=== PATIENT | female | born 1975 | race African-American/Black ===

== ENCOUNTER 2016-07-14 23:59 | Emergency (ER) | payer SELFPAY ==
[2016-07-15 01:44] LABS: URINE SOURCE CLEAN CATCH
[2016-07-15 01:48] LABS: URINE APPEARANCE CLOUDY; URINE BILIRUBIN NEG (NEG); URINE BLOOD NEG (NEG); URINE COLOR YELLOW; URINE GLUCOSE NEG (NEG); URINE KETONE NEG (NEG); URINE LEUKOCYTE ESTERASE 2+ (NEG); URINE NITRATE NEG (NEG); URINE PROTEIN NEG (NEG); URINE SPECIFIC GRAVITY 1.021 (1.003-1.035)
[2016-07-15 01:50] LABS: CULTURE INDICATED? YES; URINE BACTERIA AUWI 3+ (NEGATIVE); URINE SQUAMOUS EPITHELIAL CELL MOD /[HPF]; UWBCS1 AUWI 25-50 (0-5)
== END 2016-07-15 02:38 | disposition home or self-care (01) ==
LOC: CED 23:59
PROVIDERS: Nurse Practitioner
DX: L02.416 Cutaneous abscess of left lower limb (principal); N39.0 Urinary tract infection, site not specified; Z23 Encounter for immunization
CPT/HCPCS: 10060; 81003; 87086; 90471; 90715; 99283

== ENCOUNTER 2016-08-06 08:49 | Emergency (ER) | payer SELFPAY ==
[2016-08-06 09:22] LABS: URINE SOURCE CLEAN CATCH
[2016-08-06 09:30] LABS: URINE APPEARANCE CLOUDY; URINE BILIRUBIN NEG (NEG); URINE BLOOD NEG (NEG); URINE COLOR YELLOW; URINE GLUCOSE NEG (NEG); URINE KETONE NEG (NEG); URINE LEUKOCYTE ESTERASE 3+ (NEG); URINE NITRATE NEG (NEG); URINE PH 7.5 (5-8); URINE PROTEIN NEG (NEG); URINE SPECIFIC GRAVITY 1.017 (1.003-1.035)
[2016-08-06 09:33] LABS: CULTURE INDICATED? YES; U HYALINE CASTS AUWI 0-2 /[LPF]
[2016-08-06 09:41] LABS: URINE SQUAMOUS EPITHELIAL CELL MODERATE /[HPF]
[2016-08-06 09:42] LABS: URBCS1 AUWI 0-2 /[HPF] (0-2); UWBCS1 AUWI 25-50 (0-5)
[2016-08-06 09:43] LABS: URINE BACTERIA AUWI 1+ (NEGATIVE)
[2016-08-07 15:59] LABS: CHLAMYDIA TRACH Not Detected (Not Detected); N GONOR Not Detected (Not Detected)
== END 2016-08-06 10:34 | disposition home or self-care (01) ==
LOC: CED 08:49
PROVIDERS: Emergency Medicine
DX: N30.00 Acute cystitis without hematuria (principal); B37.3 Candidiasis of vulva and vagina
CPT/HCPCS: 81003; 84703; 87086; 87491; 87591; 87808; 87905; 99284